=== PATIENT | female | born 1995 | race Caucasian/White ===

== ENCOUNTER → 2019-06-12 14:57 | Outpatient (CLI) | payer OTHER, SELFPAY ==
--- NOTE | 2019-06-12 14:59 | DI.RAD.S_ITS ---
PROCEDURE: XR CHEST 2V INDICATIONS: R/O PNA TECHNIQUE: 2 views of the chest were acquired. COMPARISON: None. FINDINGS: Surgical changes and devices: None. Lungs and pleura: Lungs are clear. No pleural effusions or pneumothorax. Mediastinum: Mediastinal contours are normal. Heart size is normal. Bones and chest wall: No suspicious bony abnormalities. Soft tissues appear unremarkable. IMPRESSION: Chest without acute cardiopulmonary abnormalities. No focal consolidations. Dictated by: Markos Robledo M.D. on 06/12/2019 at 16:47 Approved by: Markos Robledo M.D. on 06/12/2019 at 16:48
== END ==
PROVIDERS: Visit Provider Physician Assistant
DX: R05 Cough (principal)
CPT/HCPCS: 71046

== ENCOUNTER 2019-11-15 03:48 | Emergency (ER) | payer SELFPAY ==
[2019-11-15 03:55] VITALS: BP 128/79; PULSE 77; RESP 18; TEMP 36.8; O2SAT 98; BMI 19.1
--- NOTE | 2019-11-15 03:55 | ED_ITS ---
HPI - Nausea/Vomiting/Diarrhea General Chief complaint: Abdominal Pain Stated complaint: vomiting since wednesday/ eat Time Seen by Provider: 11/15/19 03:50 Source: patient Mode of arrival: Ambulatory Limitations: no limitations History of Present Illness HPI Narrative: This is a 24-year-old female comes to the emergency department with complaint of abdominal pain. Patient states that she has had vomiting sinc e Wednesday. No fevers. She has not had any chest pain or shortness of breath. She states a week ago she had cold-like upper respiratory symptoms which resolved surgery on Wednesday she has been having intermittent vomiting. She states that it does sometimes seems worse when she lays down. She states that she has been nauseated. She states she has not been able to keep much food down. She has had very small amounts of diarrhea but has been having stools regularly. No black or blood. No frequency, dysuria or urgency. She has not had any back or flank pain. No vaginal discharge. She did start her menses in the last day. She discomfort that sort of epigastric and left upper quadrant. Patient denies any medical problems other anxiety. She stopped her Lexapro in July because her insurance ran out, she states she was taking for anxiety but it was helping some chronic abdominal/stomach issues. She has had an EGD in the had biopsies but they were all negative. She had similar symptoms to this but not as intense as the last several days. She has not had any surgeries. She denies tobacco, alcohol or illicit. Related Data Home Medications Medication Instructions Recorded Confirmed escitalopram oxalate 20 mg tablet 20 mg PO DAILY 05/29/19 06/12/19 Previous Rx's Medication Instructions Recorded famotidine [Pepcid] 40 mg PO DAILY #30 tab 11/15/19 Allergies Allergy/AdvReac Type Severity Reaction Status Date / Time amoxicillin AdvReac hives Verified 06/12/19 15:52 Review of Systems Review of Systems ROS Unobtainable: All systems reviewed & are unremarkable except as noted in HPI and below Patient History Medical History (Updated 11/15/19 @ 04:08 by Marielos Patel DO) Anxiety (Acute) Social History Smoking Status: Never smoker Smoking Status: Never smoker Substance Use Type: does not use Exam Narrative Exam Narrative: GENERAL: Alert and oriented x three, well-nourished female in mild distress. Patient is mildly shaky and appears anxious. HEENT: Head normocephalic, atraumatic, EOMI, pupils reactive, face symmetric, moist mucous membranes NECK: Supple, full range of motion CARDIOVASCULAR: Regular rate and rhythm without murmurs, rubs or gallops. RESPIRATORY: Breath sounds equal bilaterally, no wheezes rales or rhonchi. ABDOMEN: Soft, mild left upper quadrant epigastric tenderness. Normoactive bowel sounds all 4 quadrants. No guarding or rebound, rigidity, no mass : No CVA tenderness EXTREMITIES: Normal range of motion, no clubbing or edema. Neurovascularly intact NEUROLOGICAL: Cranial nerves II through XII grossly intact. Moving all extremities SKIN: Warm, dry, no petechiae, no rashes or lesions. Initial Vital Signs Initial Vital Signs: Vital Signs Temperature 98.3 F 11/15/19 03:55 Pulse Rate 77 11/15/19 03:55 Respiratory Rate 18 11/15/19 03:55 Blood Pressure 128/79 11/15/19 03:55 Pulse Oximetry 98 11/15/19 03:55 Course Orders Ordered: ED Orders 11/15/19 04:03 XR abdomen min 2V Stat 11/15/19 04:08 Complete Blood Count AUTO DIFF Stat Comprehensive Metabolic Panel Stat Lipase Stat Discontinued Medications Sodium Chloride (Normal Saline 0.9%) 1,000 mls @ 1,000 mls/hr IV BOLUS ONE Stop: 11/15/19 05:01 Last Infusion: 11/15/19 05:25 Dose: 0 mls/hr Documented by: Admin: 11/15/19 04:15 Dose: 1,000 mls/hr Documented by: TRELL Ondansetron HCl (Zofran) 4 mg IV NOW ONE Stop: 11/15/19 04:03 Last Admin: 11/15/19 04:15 Dose: 4 mg Documented by: TRELL Ondansetron HCl (Zofran Odt Prepack) 1 bottle MISC SEEINSTR ONE Stop: 11/15/19 05:09 Last Admin: 11/15/19 05:25 Dose: 1 bottle Documented by: TRELL Pantoprazole Sodium (Protonix) 40 mg IV NOW ONE Stop: 11/15/19 04:03 Last Admin: 11/15/19 04:15 Dose: 40 mg Documented by: TRELL Vital Signs Vital signs: Vital Signs - 8 hr 11/15/19 03:55 11/15/19 05:06 Temperature 98.3 F Pulse Rate 77 87 Respiratory Rate 18 16 Blood Pressure 128/79 Blood Pressure [Left Arm] 111/68 Pulse Oximetry 98 99 MDM - Nausea/Vomiting/Diarrhea Lab Data Attestation: I reviewed the patient's lab results. Result diagrams: 11/15/19 04:08 11/15/19 04:08 Labs: Lab Results 11/15/19 11/15/19 Range/Units 04:08 04:08 WBC 9.2 (4.5-11.0) X10^3/uL RBC 4.32 (4.0-5.2) X10^6/uL Hgb 13.4 (12.0-16.0) g/dL Hct 39.0 (36-46) % MCV 90.3 (80-100) fL MCH 31.0 (26-34) PG MCHC 34.3 (30-36) % RDW 14.1 (11.6-14.8) % Plt Count 246 (150-400) X10^3/uL Neut % (Auto) 82.1 H (50-75) % Lymph % (Auto) 10.6 L (25-40) % [place] % (Auto) 6.7 (3-14) % Eos % (Auto) 0.3 L (2-4) % Baso % (Auto) 0.3 (0-2) % Neut # (Auto) 7500 H (8015-6060) /uL Lymph # (Auto) 1000 L (2093-4957) /uL [place] # (Auto) 600 (0-900) /uL Eos # (Auto) 0 (0-450) /uL Baso # (Auto) 0 (0-100) /uL Sodium 139 (137-145) mmol/L Potassium 3.3 L (3.4-5.1) mmol/L Chloride 108 H (98-107) mmol/L Carbon Dioxide 23 (22-32) mmol/L BUN 9 (7-17) mg/dL Creatinine 0.59 (0.52-1.04) mg/dL Estimated GFR > 60.0 (>60) mL/min BUN/Creatinine Ratio 15.3 (6-22) Glucose 114 H (70-100) mg/dL Calcium 9.1 (8.4-10.2) mg/dL Total Bilirubin 0.5 (0.2-1.3) mg/dL AST 23 (14-36) IU/L ALT 15 (<35) IU/L Alkaline Phosphatase 65 (38-126) U/L Total Protein 7.7 (6.3-8.2) g/dL Albumin 4.5 (3.5-5.0) g/dL Globulin 3.2 (1.7-4.1) g/dL Albumin/Globulin Ratio 1.4 (1.0-2.8) Lipase 115 (23-300) U/L Point of Care Testing Test Results Negative Urine Dip Bedside Urine Glucose Negative Bedside Urine Bilirubin - Negative Bedside Urine Ketone - Negative Urine Specific [place] 1.015 Bedside Urine Occult Blood +++ Bedside Urine pH 6.5 Bedside Urine Protein +/- 15 Bedside Urine Urobilinogen +/- 1mg Bedside Urine Nitrite - Negative Bedside Urine Leukocytes - Negative Esterase Imaging Data Abdominal x-ray: Attestation: I personally reviewed and interpreted this imaging study as follows: My Impression: nap, air throughout, no air fluid levels, no signs of obstruction. [facility] Narrative Medical decision making narrative: Of epigastric and left upper quadrant abdominal pain since Wednesday with intermittent vomiting. Patient has normal white count with left shift of 82%, lymphocytes are low. Patient's potassium is low at 3.3 with a chloride of 108 otherwise normal electrolytes and renal function with a glucose of 114 and normal LFTs and lipase. Abdominal x-ray shows no obstructive process with air throughout. Urine shows blood but this is consistent with patient recently starting her menses. is negative call patient is negative for ketones. Patient was given fluids, Zofran and Protonix and on recheck she is feeling better. She states pain has improved, she does not feel nauseated she states she even feels a little hungry. Vital signs continue to be stable. We discussed differential. Plan do short Zofran prepack and also discussed starting a PPI for symptomatology. Patient has had an EGD that was negative in the past although we discussed things like ulcer and gastritis are within the differential. Suspicion for colitis or other intra- abdominal infectious processes is lower. Endometriosis is on the differential. Patient was encouraged to establish with primary care she has some resources with her and we also discussed the residency clinic in [place] maybe a cheaper alternative if she does not currently have insurance. She did find Lexapro quite helpful when she was on it so she was encouraged to reestablish show that she can restart her medication and take it regularly. Discharge Plan Departure Patient Disposition: Home Clinical Impression: Vomiting Qualifiers: Vomiting type: unspecified Nausea presence: with nausea Abdominal pain Qualifiers: Abdominal location: left upper quadrant Qualified Code(s): R10.12 - Left upper quadrant pain Instructions: DI for Abdominal Pain-Adult Activity Restrictions/Additional Instructions: Follow up with primary care options to reestablish and so you can restart her Lexapro if you found this helpful in the past. You may take Zofran 1 tablet every 6 hours as needed for nausea. Take Pepcid 1 tablet daily for next 2 weeks to see if this is helpful for your symptoms. A prescription was sent to [facility] in [place] but you can also buy this medication over the counter if it is cheaper. Return to the ER for fevers greater 100.4 F, new shortness of breath, chest pain or pressure, passing out, persistent vomiting, black or bloody stools, rapidly worsening abdominal or back or flank pain or other new or concerning symptoms. Prescriptions: New famotidine [Pepcid] 40 mg tablet 40 mg PO DAILY Qty: 30 RF: 0 No Action escitalopram oxalate [Lexapro] 20 mg tablet 20 mg PO DAILY RF: 0
--- NOTE | 2019-11-15 04:03 | DI.RAD.S_ITS ---
PROCEDURE: XR ABDOMEN MIN 2V INDICATIONS: abdominal pain, vomiting, small amount of diarrhea TECHNIQUE: 2 views of the abdomen were acquired. COMPARISON: None. FINDINGS: Surgical changes and devices: None. Bowel: No pneumoperitoneum. The bowel gas pattern is normal. Soft tissues: No masses; visualized solid organ contours appear normal in size. No suspicious abdominal calcifications. Bones: No suspicious bony abnormalities. IMPRESSION: Nonspecific bowel gas pattern, no sign of intestinal obstruction or perforation. Dictated by: Alfonso Younger M.D. on 11/15/2019 at 10:06 Approved by: Alfonso Younger M.D. on 11/15/2019 at 10:06
[2019-11-15] MEDS: ONDANSETRON 4 MG/2 ML INJ IV (04:15)
[2019-11-15] MEDS: PANTOPRAZOLE 40 MG VIAL IV (04:15)
[2019-11-15] MEDS: SODIUM CHLORIDE 0.9% 1,000 ML 1000 ML IV (04:15)
[2019-11-15 04:45] LABS: Add Manual Diff / Slide Review NO; Basophils Absolute Auto 0 /uL (0-100); Basophils Percent Auto 0.3 % (0-2); Eosinophils Absolute Auto 0 /uL (0-450); Eosinophils Percent Auto 0.3 % (2-4); Hemoglobin 13.4 g/dL (12.0-16.0); Lymphocytes Absolute Auto 1000 /uL (1100-4500); Lymphocytes Percent Auto 10.6 % (25-40); Mean Corpuscular HGB Conc 34.3 % (30-36); Mean Corpuscular Volume 90.3 fL (80-100); Monocytes Absolute Auto 600 /uL (0-900); Monocytes Percent Auto 6.7 % (3-14); Neutrophils Absolute Auto 7500 /uL (1500-7000); Neutrophils Percent Auto 82.1 % (50-75); Platelet Count 246 X10^3/uL (150-400); Red Blood Cell Count 4.32 X10^6/uL (4.0-5.2); Red Cell Distribution Width 14.1 % (11.6-14.8); White Blood Cell Count 9.2 X10^3/uL (4.5-11.0)
[2019-11-15 04:51] LABS: Alanine Aminotransferase 15 IU/L (<35); Albumin 4.5 g/dL (3.5-5.0); Albumin Globulin Ratio 1.4 (1.0-2.8); Alkaline Phosphatase 65 U/L (38-126); Aspartate Aminotransferase 23 IU/L (14-36); BUN Creatinine Ratio 15.3 (6-22); Bilirubin Total 0.5 mg/dL (0.2-1.3); Blood Urea Nitrogen 9 mg/dL (7-17); Calcium 9.1 mg/dL (8.4-10.2); Carbon Dioxide 23 mmol/L (22-32); Chloride 108 mmol/L (98-107); Estimated Glomerular Filt Rate > 60.0 mL/min (>60); Globulin 3.2 g/dL (1.7-4.1); Glucose 114 mg/dL (70-100); HEMOLYSIS < 15 (0-50); Lipase 115 U/L (23-300); Potassium 3.3 mmol/L (3.4-5.1); Sodium 139 mmol/L (137-145); Total Protein 7.7 g/dL (6.3-8.2)
[2019-11-15 05:06] VITALS: BP 111/68; PULSE 87; RESP 16; O2SAT 99
[2019-11-15] MEDS: ONDANSETRON 4 MG ODT PREPACK 1 BOTTLE MISC (05:25)
[2019-11-15 05:30] VITALS: BP 111/68; PULSE 95; RESP 16; O2SAT 100
== END 2019-11-15 05:30 | disposition home or self-care (01) ==
PROVIDERS: Emergency Provider Emergency Medicine
DX: R10.12 Left upper quadrant pain (principal); R11.2 Nausea with vomiting, unspecified; F41.9 Anxiety disorder, unspecified
CPT/HCPCS: 36415; 74019; 80053; 81003; 81025; 83690; 85025; 96361; 96374; 96375; 99284; C9113; J2405

== ENCOUNTER 2021-05-02 11:14 | Emergency (ER) | payer OTHER, SELFPAY ==
[2021-05-02 11:21] VITALS: BP 110/78; PULSE 92; RESP 14; TEMP 36.3; O2SAT 99
[2021-05-02] MEDS: ONDANSETRON 4 MG ODT PO (11:36)
[2021-05-02 11:56] LABS: Bacteria Urine None Seen; RBC Urine None Seen (0-5/HPF); WBC Urine None Seen (0-5/HPF)
--- NOTE | 2021-05-02 12:04 | ED_ITS ---
HPI - Nausea/Vomiting/Diarrhea General Chief complaint: Nausea/Vomiting/Diarrhea Stated complaint: 8 weeks /dizzy/vomiting Time Seen by Provider: 05/02/21 11:31 Source: patient Mode of arrival: Ambulatory Limitations: no limitations History of Present Illness HPI Narrative: Patient is an otherwise healthy 25-year-old female. at approximately 8 weeks EGA who has yet to have her 1st OB appointment to is here for evaluation of nausea and vomiting. She has had nausea vomiting for the past several weeks. Has been prescribed Zofran by her primary doctor however ran out of this medication a couple days ago. This morning started having continuous nausea and vomiting. Unable to tolerate any oral intake. No urinary symptoms. No vaginal bleeding. Does have some lower abdominal cramping. No diarrhea. No recent travel. No recent antibiotics. No fevers. Related Data Home Medications Medication Instructions Recorded Confirmed escitalopram oxalate 20 mg tablet 20 mg PO DAILY 05/29/19 06/12/19 (Lexapro) Previous Rx's Medication Instructions Recorded promethazine 25 mg tablet 25 mg PO TID PRN 10 Days #30 tab 04/08/21 ondansetron 4 mg disintegrating 4 mg PO Q6H PRN #30 tab 05/02/21 tablet Allergies Allergy/AdvReac Type Severity Reaction Status Date / Time amoxicillin AdvReac hives Verified 06/12/19 15:52 Review of Systems Constitutional Constitutional: Denies fever(s) Cardiovascular Cardiovascular: Reports system reviewed and no additional complaints, except as documented Respiratory Respiratory: Reports system reviewed and no additional complaints, except as documented Gastrointestinal Gastrointestinal: Reports as per HPI Genitourinary Genitourinary: Reports as per HPI Integumentary/Breasts Skin/Breast: Reports system reviewed and no additional complaints, except as documented Neurologic Neurologic: Reports system reviewed and no additional complaints, except as documented Hematologic/Lymphatic On Anticoagulants: No Patient History Medical History Anxiety Social History Smoking Status: Never smoker Smoking Status: Never smoker Substance Use Type: does not use Exam Initial Vital Signs Initial Vital Signs: Vital Signs Temperature 97.4 F L 05/02/21 11:21 Pulse Rate 92 H 05/02/21 11:21 Respiratory Rate 14 05/02/21 11:21 Blood Pressure 110/78 05/02/21 11:21 Pulse Oximetry 99 05/02/21 11:21 Const General: cooperative, comfortable and well developed HENME Head: normal to inspection and normocephalic Resp Effort & Inspection: normal respiratory effort Auscultation: clear to auscultation bilaterally Cardio Rate: regular rate Rhythm: regular rhythm GI Inspection: normal to inspection Palpation: soft Skin General: no rashes or lesions noted Neuro General: patient alert, patient awake and moves all extremities Extrem General: normal to inspection and capillary refill normal Psych Appearance: grossly normal and well kempt Course Orders Ordered: ED Orders 05/02/21 11:30 Urine Microscopic Stat Discontinued Medications Sodium Chloride (Normal Saline 0.9%) 1,000 mls @ 1,000 mls/hr IV BOLUS ONE Stop: 05/02/21 13:03 Last Admin: 05/02/21 12:30 Dose: 1,000 mls/hr Documented by: SUSY Ondansetron HCl (Ondansetron 4 Mg Odt) 4 mg PO NOW ONE Stop: 05/02/21 11:31 Last Admin: 05/02/21 11:36 Dose: 4 mg Documented by: REBECCA Vital Signs Vital signs: Vital Signs - 8 hr 05/02/21 11:21 Temperature 97.4 F L Pulse Rate 92 H Respiratory Rate 14 Blood Pressure 110/78 Pulse Oximetry 99 MDM - Nausea/Vomiting/Diarrhea Lab Data Labs: Lab Results 05/02/21 Range/Units 11:30 Urine RBC None seen (0-5/HPF) Urine WBC None seen (0-5/HPF) Ur Squamous Epith Cells 5-10 /hpf H (0-5/HPF) Ur Transition Epith Cell 1-5/hpf (0-5/HPF) Urine Bacteria None seen (None) Urine Mucus 3+ H (Negative) Ur Culture Indicated? Cult not indicated Urine Dip Bedside Urine Glucose Negative Bedside Urine Bilirubin - Negative Bedside Urine Ketone +++ 80 Urine Specific [place] 1.015 Bedside Urine Occult Blood - Negative Bedside Urine pH 8.0 Bedside Urine Protein + 30 Bedside Urine Urobilinogen - Negative Bedside Urine Nitrite - Negative Bedside Urine Leukocytes - Negative Esterase MDM Narrative Medical decision making narrative: Urinalysis shows ketones but no signs of an infection. She is not having any vaginal bleeding. After fluids she was able to tolerate oral intake. Will hold on any further workup for now to include radiologic studies. Will give her a prescription for Zofran. She already has OB scheduled. She is given return precautions and follow-up instructions. She expressed understanding and agreement. Discharge Plan Departure Patient Disposition: Home Clinical Impression: Nausea and vomiting during Instructions: Nausea of (Alternative Therapy) Activity Restrictions/Additional Instructions: I recommend that you increase your fluid intake by drinking small amounts over longer periods of time. Keep all of your scheduled OB appointment. Return to the emergency department for any new or worsening symptoms Prescriptions: New ondansetron 4 mg tablet,disintegrating 4 mg PO Q6H PRN (Reason: nausea and vomiting) Qty: 30 RF: 0 No Action escitalopram oxalate [Lexapro] 20 mg tablet 20 mg PO DAILY RF: 0 promethazine 25 mg tablet 25 mg PO TID PRN (Reason: nausea and vomiting) 10 Days Qty: 30 RF: 1 Referrals: Mary Arshad DO [Primary Care Provider] -
[2021-05-02 12:10] LABS: Culture Indicated Urine Cult Not Indicated; Mucus Urine 3+ (Negative); Squamous Epithelial Cell Urine 5-10 /HPF (0-5/HPF); Transitional Epi Cells Urine 1-5/HPF (0-5/HPF)
[2021-05-02] MEDS: SODIUM CHLORIDE 0.9% 1,000 ML 1000 ML IV (12:30)
[2021-05-02 14:25] VITALS: BP 101/53; PULSE 80; RESP 16; O2SAT 99
== END 2021-05-02 14:29 | disposition home or self-care (01) ==
PROVIDERS: Emergency Provider Emergency Medicine; PCP Family Medicine
DX: O21.9 Vomiting of pregnancy, unspecified (principal); Z3A.08 8 weeks gestation of pregnancy
CPT/HCPCS: 36415; 81003; 81015; 96360; 96361; 99284

== ENCOUNTER → 2021-05-05 14:31 | Outpatient (CLI) | payer OTHER, SELFPAY ==
--- NOTE | 2021-05-05 14:32 | DI.US.S_ITS ---
PROCEDURE: US OB <= 14 WEEKS FETUS INDICATIONS: Initial US for Dating and Viability please OUTSIDE/PRIOR DATING DATA: First dating scan (date and location): 05/05/2021. Estimated date of delivery (SRAVAN) from first dating scan: 12/08/2021. TECHNIQUE: Real-time scanning was performed of the fetus and maternal pelvic organs, with image documentation. Endovaginal scanning was also performed to better visualize the fetus and maternal ovaries. COMPARISON: None. FINDINGS: Embryo: [place]-rump length measures 2.3 cm corresponding to 9 weeks 0 days. Perigestational sac bleed site measuring 7.7 x 1.6 x 0.6 cm. Heart rate: Within normal limits, with left corpus luteal cyst Measurement variability in dating: +/- 4 weeks by LMP, +/- 7 days by mean sac diameter (use before 6 weeks gestation if crown-rump length not able to be measured), +/- 5 days by crown-rump length (up to 8 weeks 6 days gestation), +/- 7 days by crown-rump length (up to 13 weeks 6 days gestation). Maternal organs: Ovaries within normal limits, with left corpus luteal cyst . IMPRESSION: 9 week 0 day single living IUP and moderate perigestational sac bleed site. Dictated by: Len Avery RRA Interpreted: Adalberto Maya MD on 05/05/2021 at 16:36 Transcribed by: AMPARO on 05/05/2021 at 16:38 Approved by: Adalberto Maya M.D. on 05/05/2021 at 16:49
== END ==
PROVIDERS: PCP Family Medicine; Referring Provider Family Medicine; Visit Provider Family Medicine
DX: Z34.01 Encounter for supervision of normal first pregnancy, first trimester (principal); Z3A.09 9 weeks gestation of pregnancy
CPT/HCPCS: 76801; 76817

== ENCOUNTER → 2021-05-19 15:26 | Outpatient (CLI) | payer OTHER, SELFPAY ==
[2021-05-19 16:26] LABS: Add Manual Diff / Slide Review NO; Basophils Absolute Auto 0 /uL (0-100); Basophils Percent Auto 0.6 % (0-2); Eosinophils Absolute Auto 100 /uL (0-450); Eosinophils Percent Auto 0.7 % (2-4); Hematocrit 37.4 % (36-46); Hemoglobin 12.9 g/dL (12.0-16.0); Lymphocytes Absolute Auto 2100 /uL (1100-4500); Lymphocytes Percent Auto 25.9 % (25-40); Mean Corpuscular HGB Conc 34.4 % (30-36); Mean Corpuscular Hemoglobin 31.6 PG (26-34); Monocytes Absolute Auto 600 /uL (0-900); Monocytes Percent Auto 7.9 % (3-14); Neutrophils Absolute Auto 5300 /uL (1500-7000); Neutrophils Percent Auto 64.9 % (50-75); Platelet Count 219 X10^3/uL (150-400); Red Blood Cell Count 4.07 X10^6/uL (4.0-5.2); Red Cell Distribution Width 13.6 % (11.6-14.8); White Blood Cell Count 8.2 X10^3/uL (4.5-11.0)
[2021-05-19 16:27] LABS: Appearance Urine UA CLEAR; Bilirubin Urine UA NEGATIVE (NEGATIVE); Color Urine UA YELLOW; Glucose Urine UA NEGATIVE (Negative); Ketones Urine UA NEGATIVE (NEGATIVE); Leukocyte Esterase Urine UA NEGATIVE (NEGATIVE); Nitrite Urine UA NEGATIVE (Negative); Occult Blood Urine UA NEGATIVE (Negative); Protein Urine UA NEGATIVE (Negative); Urobilinogen Urine UA 0.2 E.U./dL (0.2)
[2021-05-19 18:21] LABS: Hepatitis B Surface Antigen NEGATIVE s/c (NEGATIVE)
[2021-05-19 18:38] LABS: HIV 1 & 2 Ab/Ag 4th Gen Combo NEGATIVE (NEGATIVE); Hep C Virus Ab w/Reflex Quant NEGATIVE s/c (NEGATIVE)
[2021-05-20 08:13] LABS: RPR Screen Non Reactive (Non Reactive)
[2021-05-20 14:19] LABS: Varicella IgG Antibody 334 index (Immune >165)
== END ==
LOC: LAB 15:26
PROVIDERS: PCP Family Medicine; Referring Provider Family Medicine; Visit Provider Family Medicine
DX: Z34.01 Encounter for supervision of normal first pregnancy, first trimester (principal)
CPT/HCPCS: 36415; 80055; 81003; 86787; 86803; 86850; 86900; 86901; 87086; 87389

== ENCOUNTER → 2021-07-01 13:57 | Outpatient (CLI) | payer OTHER, SELFPAY ==
[2021-07-01 14:54] LABS: COVID19 -Nasal RAPID Negative (Negative)
== END ==
PROVIDERS: PCP Family Medicine; Referring Provider Physician Assistant; Visit Provider Physician Assistant
DX: Z20.822 Contact with and (suspected) exposure to COVID-19 (principal)
CPT/HCPCS: 87635

== ENCOUNTER → 2021-07-14 14:47 | Outpatient (CLI) | payer OTHER, SELFPAY ==
[2021-07-30 23:54] LABS: AFP, Serum 86.1 ng/mL (.); Calc Gestational Age EDD (.); Estriol, Free 1.86 ng/mL (.); Inhibin A, Dimeric 61.98 pg/mL (.); Inhibin A, MoM 0.35 (.); Maternal Ethnicity Caucasian (.); Maternal Weight 130 lbs (.); Number of Fetuses No (.); OSBR Risk 1 IN 1671 (.); Results Report (.); Test Results *Screen Negative* (.); hCG, MoM 1.12 (.); hCG, Serum 34674 mIU/mL (.)
== END ==
PROVIDERS: PCP Family Medicine; Referring Provider Family Medicine; Visit Provider Family Medicine
DX: Z34.92 Encounter for supervision of normal pregnancy, unspecified, second trimester (principal); Z3A.14 14 weeks gestation of pregnancy
CPT/HCPCS: 36415; 82105; 82677; 84702; 86336

== ENCOUNTER → 2021-07-28 14:39 | Outpatient (CLI) | payer OTHER, SELFPAY ==
--- NOTE | 2021-07-28 14:40 | DI.US.S_ITS ---
PROCEDURE: US OB >= 14 WEEKS FETUS INDICATIONS: ANATOMY OUTSIDE/PRIOR DATING DATA: Last menstrual period (LMP): Unknown. First dating scan (date and location): [facility]; May 05, 2021. Estimated date of delivery (SRAVAN) from first dating scan: December 08, 2021. The calculations are made using the ultrasound SRAVAN of December 08, 2021. TECHNIQUE: Real-time scanning was performed of the fetus, with image documentation and biometric measurements. COMPARISON: None. FINDINGS: General: A single living intrauterine gestation is present. Presentation: Variable. Placenta: Placental position is posterior, without previa. Low lying, measuring 1.9 cm from the cervical os Amniotic fluid index: 13.3 cm, normal range is 5-24 cm. Single deepest vertical pocket is 3.7 cm. heart rate: 162 beats per minute. Maternal cervical canal: 3.3 cm long. Normal lower limit is 2.5 cm. biometrics: Biparietal diameter: 5.2 cm Head circumference: 18.9 cm Abdominal circumference: 16.2 cm Femur length: 3.5 cm Composite gestational age from present scan: 21 weeks, 3 days Estimated weight and percentile: 411 g +/-61 g; 59th percentile Anatomic survey: Neuro: Ventricles are non-dilated at less than 10 mm. Cisterna magna is normal at 3-11 mm. Cerebellum is normal in size and morphology. Nuchal skin fold: Normal at less than 6 mm between 14-21 weeks gestational age. Face: Nose and lips, facial profile are normal. Spine: No evidence for spina bifida. Heart: 4-chambered heart is present, with normal ventricular outflow tracts. Diaphragm: Diaphragm is intact. Stomach: Left-sided stomach is present. Kidneys: No hydronephrosis. Normal is less than 5 mm in 2nd trimester, less than 7 mm in 3rd trimester. Cord: 3-vessel cord has orthotopic insertion. Bladder: Normal in size. Extremities: All 4 extremities identified. IMPRESSION: 1. Live single intrauterine gestation. 2. Low lying placenta. We strive to produce accurate, complete, and clear reports of imaging services. To assist us in improving patient care, this report was composed using standard report templates and voice recognition software. Therefore, it may contain abnormal punctuation, insertions and/or omissions. Occasional wrong-word or sound-alike substitutions may occur. Though we review the report and make efforts to correct it, we do recommend that the report be read carefully in proper context to recognize any text inaccuracies. Dictated by: Brodie Delgadillo M.D. on 07/28/2021 at 16:13 Approved by: Brodie Delgadillo M.D. on 07/28/2021 at 16:16
== END ==
PROVIDERS: PCP Family Medicine; Referring Provider Family Medicine; Visit Provider Family Medicine
DX: Z36.89 Encounter for other specified antenatal screening (principal); O44.42 Low lying placenta NOS or without hemorrhage, second trimester; Z3A.21 21 weeks gestation of pregnancy
CPT/HCPCS: 76811; 76817

== ENCOUNTER → 2021-08-26 15:44 | Outpatient (CLI) | payer OTHER, SELFPAY ==
[2021-08-28 12:21] LABS: QuantiFERON Mitogen Value >10.00 IU/mL (.); QuantiFERON TB Gold Plus Negative (Negative)
== END ==
PROVIDERS: PCP Family Medicine; Referring Provider Family Medicine; Visit Provider Family Medicine
DX: Z20.1 Contact with and (suspected) exposure to tuberculosis (principal)
CPT/HCPCS: 36415; 86480

== ENCOUNTER 2021-09-16 15:29 | Emergency (ER) | payer OTHER, SELFPAY ==
[2021-09-16 15:37] VITALS: BP 120/78; PULSE 84; RESP 14; TEMP 36.6; O2SAT 99; BMI 23.3
--- NOTE | 2021-09-16 16:06 | ED_ITS ---
HPI - SOB/Dyspnea General Chief Complaint: Shortness of Breath/Dyspnea Stated Complaint: SOB DIZZY 28 WKS Time Seen by Provider: 09/16/21 15:58 Source: patient Mode of arrival: Wheelchair Limitations: no limitations History of Present Illness HPI Narrative: Patient is a 26-year-old female who is currently 28 weeks presenting with increasing shortness of breath. She recently traveled on an airplane and got back 2 days ago. Since then she has had more shortness of breath with exertion. She was seen by her OB today noted to have conversational dyspnea and tachycardia. Concern for possible pulmonary embolism. She actually had COVID in June as well. She has no lower extremity swelling. No fever chills or cough. She was sent to the ED evaluation for PE. She is not short of breath at rest or tachycardic at this time. Related Data Home Medications Medication Instructions Recorded Confirmed escitalopram oxalate 20 mg tablet 20 mg PO DAILY 05/29/19 07/14/21 (Lexapro) Previous Rx's Medication Instructions Recorded promethazine 25 mg tablet 25 mg PO TID PRN 10 Days #30 tab 04/08/21 ondansetron 4 mg disintegrating 4 mg PO Q6H PRN #30 tab 05/02/21 tablet albuterol sulfate 90 mcg/actuation 2 puff INHALATION Q6H PRN #8.5 g 06/06/21 aerosol inhaler Allergies Allergy/AdvReac Type Severity Reaction Status Date / Time amoxicillin AdvReac Intermediate hives Verified 09/16/21 15:37 Review of Systems Review of Systems Narrative: GENERAL: Denies chills, fatigue, malaise, fever, sweats, travel HEENT: Denies sinus pain, ear pain, sore throat, difficulty swallowing, neck pain RESPIRATORY: see again CARDIOVASCULAR: Denies chest pain, palpitations, orthopnea, edema GASTROINTESTINAL: Denies nausea, vomiting, abdominal pain, diarrhea, constipation, melena. : Denies dysuria, frequency, incontinence, hematuria, urinary retention, flank pain. MUSCULOSKELETAL: Denies weakness, joint pain, or bony pain SKIN: No rash, no erythema, no pruritus NEUROLOGIC: Denies weakness, dizziness, headache, numbness, change in speech, confusion PSYCHIATRIC: No concerning psychosocial issues. 12 point review of systems is negative except for those stated above and HPI Patient History Medical History Anxiety Asthma Chronic upset stomach Eczema Migraine MRSA (methicillin resistant staph aureus) culture positive (~2006) Surgical History History of esophagogastroduodenoscopy (EGD) (~2016) [place] teeth extracted (~2015) Family History Father Diabetes mellitus Mother Tumor cells, benign History of partial thyroidectomy Grandfather Myocardial infarction Grandmother Cancer Cancer of kidney Metastatic cancer Metastatic bone cancer Grandfather History of ETOH abuse Diabetes mellitus Leukemia Grandmother Depression Diabetes mellitus Alzheimer's dementia Brother Asthma Family/Other No problems noted. 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.) current occupational exposures/hazards: Yes special lorena needs: No Smoking Status: Never smoker second hand exposure: No alcohol intake: former (pre- : on a rare occasion) substance use type: does not use Smoking Status: Never smoker alcohol intake frequency: holidays/special occasions only Substance Use Type: does not use Exam Initial Vital Signs Initial Vital Signs: Vital Signs Temperature 97.8 F 09/16/21 15:37 Pulse Rate 84 09/16/21 15:37 Respiratory Rate 14 09/16/21 15:37 Blood Pressure 120/78 09/16/21 15:37 Pulse Oximetry 99 09/16/21 15:37 GENERAL: Alert 26-year-old female HEENT: Head atraumatic,EOMI, pupils reactive, face symmetric, moist mucous membranes CARDIOVASCULAR: Regular rate and rhythm without murmurs, rubs or gallops. RESPIRATORY: Breath sounds equal bilaterally, no wheezes rales or rhonchi. ABDOMEN: Soft, gravid nontender Normoactive bowel sounds all 4 quadrants. No guarding or rebound. EXTREMITIES: Normal range of motion, no clubbing or edema. Neurovascularly intact NEUROLOGICAL: Alert and oriented x4.Normal gait and speech. SKIN: Warm, dry, no laceration, no petechiae, no rashes or lesions. Course Orders Ordered: ED Orders 09/16/21 16:25 CBC Auto Diff [Complete Blood Count AUTO DIFF] Stat CMP [Comprehensive Metabolic Panel] Stat 09/16/21 16:33 EKG-12 Lead Stat 09/16/21 17:23 CT angio chest PE protocol Stat Discontinued Medications Sodium Chloride (Normal Saline 0.9%) 1,000 mls @ 1,000 mls/hr IV BOLUS ONE Stop: 09/16/21 17:11 Last Infusion: 09/16/21 17:43 Dose: 0 mls/hr Documented by: Admin: 09/16/21 16:20 Dose: 1,000 mls/hr Documented by: EMMANUELLE Vital Signs Vital signs: Vital Signs - 8 hr 09/16/21 15:37 09/16/21 18:16 09/16/21 18:17 Temperature 97.8 F Pulse Rate 84 91 H 80 Respiratory Rate 14 25 H 21 Blood Pressure 120/78 123/64 Pulse Oximetry 99 99 100 09/16/21 18:30 Temperature Pulse Rate 79 Respiratory Rate 21 Blood Pressure Pulse Oximetry 98 MDM - SOB/Dyspnea Lab Data Result diagrams: 09/16/21 16:25 09/16/21 16:25 Labs: Lab Results 09/16/21 09/16/21 Range/Units 16:25 16:25 WBC 8.7 (4.5-11.0) X10^3/uL RBC 3.26 L (4.0-5.2) X10^6/uL Hgb 10.5 L (12.0-16.0) g/dL Hct 30.3 L (36-46) % MCV 92.9 (80-100) fL MCH 32.2 (26-34) PG MCHC 34.7 (30-36) % RDW 13.3 (11.6-14.8) % Plt Count 231 (150-400) X10^3/uL Neut % (Auto) 67.8 (50-75) % Lymph % (Auto) 22.0 L (25-40) % [place] % (Auto) 8.9 (3-14) % Eos % (Auto) 0.9 L (2-4) % Baso % (Auto) 0.4 (0-2) % Neut # (Auto) 5900 (4747-9042) /uL Lymph # (Auto) 1900 (0732-4169) /uL [place] # (Auto) 800 (0-900) /uL Eos # (Auto) 100 (0-450) /uL Baso # (Auto) 0 (0-100) /uL Sodium 135 L (137-145) mmol/L Potassium 3.6 (3.4-5.1) mmol/L Chloride 107 (98-107) mmol/L Carbon Dioxide 25 (22-32) mmol/L BUN 7 (7-17) mg/dL Creatinine 0.46 L (0.52-1.04) mg/dL Estimated GFR > 60.0 (>60) mL/min BUN/Creatinine Ratio 15.2 (6-22) Glucose 85 (70-100) mg/dL Calcium 8.9 (8.4-10.2) mg/dL Total Bilirubin 0.3 (0.2-1.3) mg/dL AST 21 (14-36) IU/L ALT 11 (<35) IU/L Alkaline Phosphatase 66 (38-126) U/L Total Protein 6.6 (6.3-8.2) g/dL Albumin 3.6 (3.5-5.0) g/dL Globulin 3.0 (1.7-4.1) g/dL Albumin/Globulin Ratio 1.2 (1.0-2.8) Urine Dip Bedside Urine Glucose Negative Bedside Urine Bilirubin - Negative Bedside Urine Ketone - Negative Urine Specific [place] 1.010 Bedside Urine Occult Blood - Negative Bedside Urine pH 6.5 Bedside Urine Protein - Negative Bedside Urine Urobilinogen - Negative Bedside Urine Nitrite - Negative Bedside Urine Leukocytes - Negative Esterase Imaging Data CT scan - chest: Radiologist's Impression: PROCEDURE:? CT ANGIO CHEST PE PROTOCOL ? INDICATIONS:? short of breath after plane 28wks preg ? TECHNIQUE:? After the administration of intravenous contrast, 2 mm thick sections acquired from the pulmonary apices to the posterior costophrenic angles.? 3-dimensional maximum intensity projection (MIP) coronal and sagittal reformats were then acquired through the thorax.? For radiation dose reduction, the following was used:? automated exposure control, adjustment of mA and/or kV according to patient size.? ? COMPARISON:? None. ? FINDINGS:? Image quality:? Posterior lung bases not imaged. ? Pulmonary arteries:? Pulmonary arteries are normal in size, and demonstrate no intraluminal filling defects to suggest central pulmonary embolism.? ? Lungs and pleura:? Lungs are clear.? No pleural effusions or pneumothorax.? Central and peripheral airways are patent.? ? Mediastinum:? Heart size is normal, without pericardial effusion.? No mediastinal or hilar adenopathy.? Thoracic aorta is normal in caliber and enhancement.? Esophagus is normal in caliber, without hiatal hernia.? ? Bones and chest wall:? No suspicious bony lesions.? Ribs and thoracic spine appear intact throughout.? Thyroid gland is within normal limits where visualized No axillary or supraclavicular adenopathy.? ? Abdomen:? Visualized upper abdominal solid organs appear normal in the early arterial phase of enhancement.? ? IMPRESSION:? ? 1. No pulmonary embolus and visualized portions of the chest. ? 2. No lung consolidation or pleural effusions in the visualized portions of the chest.? ? ? Dictated by: Kenyetta Hansen MD, PhD on 09/16/2021 at 18:01 ? ? ECG Data Interpretation: Normal sinus rhythm rate 78 VA interval 152 QRS [address] changes MDM Narrative Medical decision making narrative: At this time patient does have risk factors with recent travel increasing shortness of breath sudden onset tachycardia and over the office today. I spoke to Dr. Arshad myself we discussed signs and symptoms. Some tingling in her lips and hands does sound like mild anxiety. However with recent travel it is very difficult to tell with tachycardia shortness of breath. She has no lower extremity swelling. I discussed with patient risk of CT, she discussed with family decision to go ahead with CT. Fortunately CT does not confirm or sure any pulmonary embolism. Blood work is overall reassuring. At this time can go home and follow-up with OB as planned Discharge Plan Departure Patient Disposition: Home Clinical Impression: Shortness of breath due to in third trimester Instructions: DI for Shortness of Breath Activity Restrictions/Additional Instructions: *You have been diagnosed with shortness of breath *What to do: At this time no life threatening cause of shortness of breath. Breathing may be due to anxiety and . *Continue to take medications as directed *Follow up with your primary care provider in 2-3 days or call [phone] *Return to ER if you should have increasing shortness of breath, abdominal pain, palpitations or any new, worsening or concerning symptoms Prescriptions: No Action escitalopram oxalate [Lexapro] 20 mg tablet 20 mg PO DAILY 0RF promethazine 25 mg tablet 25 mg PO TID PRN (Reason: nausea and vomiting) 10 Days Qty: 30 1RF albuterol sulfate 90 mcg/actuation HFA aerosol inhaler 2 puff inhalation Q6H PRN (Reason: shortness of breath or wheezing) Qty: 8.5 2RF ondansetron 4 mg tablet,disintegrating 4 mg PO Q6H PRN (Reason: nausea and vomiting) Qty: 30 0RF Referrals: Mary Arshad DO [Primary Care Provider] -
[2021-09-16] MEDS: SODIUM CHLORIDE 0.9% 1,000 ML 1000 ML IV (16:20)
[2021-09-16 16:47] LABS: Add Manual Diff / Slide Review NO; Basophils Absolute Auto 0 /uL (0-100); Basophils Percent Auto 0.4 % (0-2); Eosinophils Absolute Auto 100 /uL (0-450); Eosinophils Percent Auto 0.9 % (2-4); Hematocrit 30.3 % (36-46); Hemoglobin 10.5 g/dL (12.0-16.0); Lymphocytes Absolute Auto 1900 /uL (1100-4500); Mean Corpuscular HGB Conc 34.7 % (30-36); Mean Corpuscular Hemoglobin 32.2 PG (26-34); Mean Corpuscular Volume 92.9 fL (80-100); Monocytes Absolute Auto 800 /uL (0-900); Monocytes Percent Auto 8.9 % (3-14); Neutrophils Absolute Auto 5900 /uL (1500-7000); Neutrophils Percent Auto 67.8 % (50-75); Platelet Count 231 X10^3/uL (150-400); Red Blood Cell Count 3.26 X10^6/uL (4.0-5.2); Red Cell Distribution Width 13.3 % (11.6-14.8); White Blood Cell Count 8.7 X10^3/uL (4.5-11.0)
[2021-09-16 16:59] LABS: Alanine Aminotransferase 11 IU/L (<35); Albumin 3.6 g/dL (3.5-5.0); Albumin Globulin Ratio 1.2 (1.0-2.8); Alkaline Phosphatase 66 U/L (38-126); Aspartate Aminotransferase 21 IU/L (14-36); BUN Creatinine Ratio 15.2 (6-22); Bilirubin Total 0.3 mg/dL (0.2-1.3); Blood Urea Nitrogen 7 mg/dL (7-17); Calcium 8.9 mg/dL (8.4-10.2); Carbon Dioxide 25 mmol/L (22-32); Chloride 107 mmol/L (98-107); Estimated Glomerular Filt Rate > 60.0 mL/min (>60); Glucose 85 mg/dL (70-100); HEMOLYSIS < 15 (0-50); Potassium 3.6 mmol/L (3.4-5.1); Sodium 135 mmol/L (137-145); Total Protein 6.6 g/dL (6.3-8.2)
--- NOTE | 2021-09-16 17:23 | DI.CT.S_ITS ---
PROCEDURE: CT ANGIO CHEST PE PROTOCOL INDICATIONS: short of breath after plane 28wks preg TECHNIQUE: After the administration of intravenous contrast, 2 mm thick sections acquired from the pulmonary apices to the posterior costophrenic angles. 3-dimensional maximum intensity projection (MIP) coronal and sagittal reformats were then acquired through the thorax. For radiation dose reduction, the following was used: automated exposure control, adjustment of mA and/or kV according to patient size. COMPARISON: None. FINDINGS: Image quality: Posterior lung bases not imaged. Pulmonary arteries: Pulmonary arteries are normal in size, and demonstrate no intraluminal filling defects to suggest central pulmonary embolism. Lungs and pleura: Lungs are clear. No pleural effusions or pneumothorax. Central and peripheral airways are patent. Mediastinum: Heart size is normal, without pericardial effusion. No mediastinal or hilar adenopathy. Thoracic aorta is normal in caliber and enhancement. Esophagus is normal in caliber, without hiatal hernia. Bones and chest wall: No suspicious bony lesions. Ribs and thoracic spine appear intact throughout. Thyroid gland is within normal limits where visualized No axillary or supraclavicular adenopathy. Abdomen: Visualized upper abdominal solid organs appear normal in the early arterial phase of enhancement. IMPRESSION: 1. No pulmonary embolus and visualized portions of the chest. 2. No lung consolidation or pleural effusions in the visualized portions of the chest. Dictated by: Kenyetta Hansen MD, PhD on 09/16/2021 at 18:01 Approved by: Kenyetta Hansen MD, PhD on 09/16/2021 at 18:05
[2021-09-16 18:16] VITALS: PULSE 91; RESP 25; O2SAT 99
[2021-09-16 18:17] VITALS: BP 123/64; PULSE 80; RESP 21; O2SAT 100
[2021-09-16 18:30] VITALS: PULSE 79; RESP 21; O2SAT 98
== END 2021-09-16 19:00 | disposition home or self-care (01) ==
PROVIDERS: Emergency Provider Emergency Medicine; PCP Family Medicine
DX: O26.893 Other specified pregnancy related conditions, third trimester (principal); R06.02 Shortness of breath; O99.413 Diseases of the circulatory system complicating pregnancy, third trimester; R00.0 Tachycardia, unspecified; Z3A.28 28 weeks gestation of pregnancy
CPT/HCPCS: 36415; 71275; 80053; 81003; 85025; 93005; 96360; 99284; Q9967

== ENCOUNTER → 2021-09-20 08:24 | Outpatient (CLI) | payer OTHER, SELFPAY ==
[2021-09-20 10:00] LABS: Hematocrit 30.7 % (36-46); Hemoglobin 10.8 g/dL (12.0-16.0)
[2021-09-20 10:20] LABS: GTT (PREG) 1 Hour PP 50gm Dose 102 mg/dL (76-139)
== END ==
PROVIDERS: PCP Family Medicine; Referring Provider Family Medicine; Visit Provider Family Medicine
DX: Z34.93 Encounter for supervision of normal pregnancy, unspecified, third trimester (principal); Z3A.26 26 weeks gestation of pregnancy
CPT/HCPCS: 36415; 82950; 85014; 85018

== ENCOUNTER → 2021-09-23 10:33 | Outpatient (CLI) | payer OTHER, SELFPAY ==
[2021-09-23 12:55] LABS: Appearance Urine UA SL CLOUDY; Bilirubin Urine UA NEGATIVE (NEGATIVE); Color Urine UA YELLOW; Glucose Urine UA NEGATIVE (Negative); Ketones Urine UA NEGATIVE (NEGATIVE); Leukocyte Esterase Urine UA NEGATIVE (NEGATIVE); Nitrite Urine UA NEGATIVE (Negative); Occult Blood Urine UA 3+ (Negative); Protein Urine UA NEGATIVE (Negative); Urobilinogen Urine UA 0.2 E.U./dL (0.2)
[2021-09-23 13:05] LABS: pH Urine UA 7.5 (4.5-8.0)
[2021-09-23 13:45] LABS: Bacteria Urine Moderate (10-30); Culture Indicated Urine Cult Not Indicated; RBC Urine 10-30/HPF (0-5/HPF); Squamous Epithelial Cell Urine 1-5 /HPF (0-5/HPF); Transitional Epi Cells Urine 1-5/HPF (0-5/HPF); WBC Urine 1-5/HPF (0-5/HPF)
== END ==
PROVIDERS: PCP Family Medicine; Referring Provider Family Medicine; Visit Provider Family Medicine
DX: R30.0 Dysuria (principal); Z34.90 Encounter for supervision of normal pregnancy, unspecified, unspecified trimester
CPT/HCPCS: 81001

== ENCOUNTER 2021-09-24 06:00 | Observation (INO) | payer OTHER, SELFPAY ==
--- NOTE | 2021-09-24 06:24 | DI.US.S_ITS ---
PROCEDURE: US OB LIMITED INDICATIONS: bleeding OUTSIDE/PRIOR DATING DATA: First dating scan (date and location): 05/05/2021. Estimated date of delivery (SRAVAN) from first dating scan: 12/08/2021. The calculations are made using the ultrasound SRAVAN of 12/08/2021. TECHNIQUE: Real-time scanning was performed of the fetus, with image documentation. Biometry measurements performed. COMPARISON: [facility], , OB >= 14 WEEKS FETUS, 07/28/2021, 14:51. FINDINGS: A single living intrauterine gestation is present. Presentation: Vertex. Placenta: Placental position is left fundal, without previa. No abruption. Amniotic fluid index: 18.5 cm, normal range is 5-24 cm. Single deepest vertical pocket is 7 cm. heart rate: 149 bpm. Maternal cervical canal: 3.4 cm long. Normal lower limit is 2.5 cm. Biometric measurements: BPD: 7.9 cm, 31 weeks 4 days HC: 27.7 cm, 30 weeks 2 days AC: 26.6 cm, 30 weeks 5 days FL: 5.9 cm, 30 weeks 5 days Gestational age from initial scan: 29 weeks 2 days. Estimated gestational age based on today's ultrasound: 30 weeks 6 days Estimated weight 1630 g, 87th percentile. IMPRESSION: 1. Dan living intrauterine at 30 weeks 6 days based on today's ultrasound. This is concordant with the prior ultrasound dating. Fetus is in the 87th percentile for weight. Vertex position. 2. Normal placenta and amniotic fluid. Dictated by: Justin Laguna M.D. on 09/24/2021 at 8:30 Approved by: Justin Laguna M.D. on 09/24/2021 at 8:36
--- NOTE | 2021-09-24 07:13 | P.TNLD_ITS ---
Visit Information Visit Information Date of evaluation: 09/24/21 Primary OB Provider: Mary Arshad On-call OB Provider: Mary Arshad Reason for Evaluation: Yes other Comments/Additional reasons for admission: 26 year old at 28 weeks and 5 days with cramping and spotting since yesterday. She woke this morning and pain was much more intense. She has had a UTI in the past and this feels similar but far worse. Baby is moving, denies leaking. Vital Signs Vital Signs: Temperature 36.2? blood pressure 127/69 pulse 85 PFSH Medical History Anxiety Asthma Chronic upset stomach Eczema Migraine MRSA (methicillin resistant staph aureus) culture positive (~2006) Surgical History History of esophagogastroduodenoscopy (EGD) (~2016) [place] teeth extracted (~2015) Family History Father Diabetes mellitus Mother Tumor cells, benign History of partial thyroidectomy Grandfather Myocardial infarction Grandmother Cancer Cancer of kidney Metastatic cancer Metastatic bone cancer Grandfather History of ETOH abuse Diabetes mellitus Leukemia Grandmother Depression Diabetes mellitus Alzheimer's dementia Brother Asthma Family/Other No problems noted. 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[place].) current occupational exposures/hazards: Yes special lorena needs: No Smoking Status: Never smoker second hand exposure: No alcohol intake: former (pre- : on a rare occasion) substance use type: does not use Evaluation Evaluation Baseline heart rate: 135 Variability: Moderate (11-25) monitor accelerations: Present Monitor Decelerations: Absent Contraction Frequency (minutes): 0 Category of Tracing: Reactive Diagnosis, Plan/Disposition Final Diagnosis (1) 28 weeks gestation of : Status: Acute (2) Acute UTI: Status: Acute Plan/Disposition Plan: 26 year at 28 weeks and 5 days with acute UTI. No concern for labor, cervical length 3.5 cm. Urine culture is pending. Will treat with nitrofurantoin and Pyridium. Patient was encouraged to hydrate well. OB Disposition: home
[2021-09-24] MEDS: ACETAMINOPHEN 325 MG TABLET 975 MG PO (07:21)
[2021-09-24] MEDS: NITROFURANTOIN ER 100 MG CAPSULE PO (07:21)
[2021-09-24] MEDS: PHENAZOPYRIDINE 100 MG TABLET 200 MG PO (07:56)
[2021-09-24 07:59] LABS: Appearance Urine UA CLEAR; Bilirubin Urine UA NEGATIVE (NEGATIVE); Color Urine UA YELLOW; Glucose Urine UA NEGATIVE (Negative); Ketones Urine UA NEGATIVE (NEGATIVE); Leukocyte Esterase Urine UA NEGATIVE (NEGATIVE); Nitrite Urine UA NEGATIVE (Negative); Occult Blood Urine UA 2+ (Negative); Protein Urine UA NEGATIVE (Negative); Specific Gravity Urine UA <=1.005 (1.000-1.035); Urobilinogen Urine UA 0.2 E.U./dL (0.2)
[2021-09-24 08:17] LABS: RBC Urine 1-5/HPF (0-5/HPF); WBC Urine 1-5/HPF (0-5/HPF); pH Urine UA 6.5 (4.5-8.0)
[2021-09-24 08:18] LABS: Bacteria Urine Few (2-10); Culture Indicated Urine Cult Not Indicated; Squamous Epithelial Cell Urine None Seen (0-5/HPF)
[2021-09-24] MEDS: OXYCODONE IR 5 MG TABLET PO (08:29)
[2021-09-24] MEDS: TAMSULOSIN 0.4 MG CAPSULE PO (08:48)
== END 2021-09-24 08:53 | disposition home or self-care (01) ==
PROVIDERS: Admitting Provider Family Medicine; PCP Family Medicine; Referring Provider Family Medicine; Visit Provider Family Medicine
DX: O23.43 Unspecified infection of urinary tract in pregnancy, third trimester (principal); N39.0 Urinary tract infection, site not specified; Z3A.28 28 weeks gestation of pregnancy
CPT/HCPCS: 59025; 76815; 81001; G0378; G0379

== ENCOUNTER 2021-10-27 06:50 | Observation (INO) | payer OTHER, SELFPAY ==
--- NOTE | 2021-10-27 06:58 | DI.US.S_ITS ---
PROCEDURE: US RENAL COMPLETE INDICATIONS: LEFT FLANK PAIN TECHNIQUE: Real-time scanning was performed of the kidneys and bladder, with image documentation. COMPARISON: None. FINDINGS: Kidneys: Kidneys are normal in size. Right kidney measures 11.9 cm long; left kidney measures 12.4 cm long. Right renal cortical thickness is 1.4 cm; left renal cortical thickness is 1.8 cm. Renal cortical echotexture is normal. There is moderate to severe bilateral, symmetric hydronephrosis. Ureteropelvic junction on the right measures 1.4 cm in diameter and 1.6 cm on the left. No visible nephrolithiasis. Mid and distal ureters were not visible. Bladder: The urinary bladder is not filled and compressed by the head. Miscellaneous: There is a living fetus in vertex presentation with a heart rate of 139 beats per minute. IMPRESSION: 1. Symmetric, moderate to severe bilateral hydronephrosis. This is likely physiologic due to . 2. Urinary bladder not evaluated, compressed by the head. Dictated by: Ana Perez M.D. on 10/27/2021 at 8:11 Approved by: Ana Perez M.D. on 10/27/2021 at 8:15
[2021-10-27] MEDS: SODIUM CHLORIDE 0.45% 1,000 ML 1000 ML IV (07:45)
[2021-10-27 08:00] LABS: Add Manual Diff / Slide Review NO; Basophils Absolute Auto 100 /uL (0-100); Basophils Percent Auto 0.6 % (0-2); Eosinophils Absolute Auto 0 /uL (0-450); Eosinophils Percent Auto 0.5 % (2-4); Hematocrit 31.7 % (36-46); Hemoglobin 10.8 g/dL (12.0-16.0); Lymphocytes Absolute Auto 1500 /uL (1100-4500); Lymphocytes Percent Auto 15.9 % (25-40); Mean Corpuscular HGB Conc 34.1 % (30-36); Mean Corpuscular Hemoglobin 31.5 PG (26-34); Mean Corpuscular Volume 92.3 fL (80-100); Monocytes Absolute Auto 700 /uL (0-900); Monocytes Percent Auto 7.8 % (3-14); Neutrophils Absolute Auto 6900 /uL (1500-7000); Neutrophils Percent Auto 75.2 % (50-75); Platelet Count 222 X10^3/uL (150-400); Red Blood Cell Count 3.44 X10^6/uL (4.0-5.2); Red Cell Distribution Width 14.8 % (11.6-14.8); White Blood Cell Count 9.2 X10^3/uL (4.5-11.0)
[2021-10-27] MEDS: OXYCODONE IR 5 MG TABLET PO (08:03)
--- NOTE | 2021-10-27 08:04 | PM.OBTRLD ---
Visit Information Visit Information Date of evaluation: 10/27/21 Primary OB Provider: Mary Arshad Reason for Evaluation: Yes non-stress test Comments/Additional reasons for admission: Patient comes in complaining lower pelvic pain, left greater than right, and cramping similar to a month ago when she was diagnosed probable nephrolithiasis. Pain started early this morning and she also noticed blood with urination. She has also noticed small granules in her urine. Denies back or flank pain. Denies contractions, leaking or bleeding and reports good movement. She believes she has been hydrating well. Father has a history of kidney stones. Vital Signs Vital Signs: Temperature 97.9? blood pressure 124/79 heart rate 104 respirations 18 PFSH Medical History Anxiety Asthma Chronic upset stomach Eczema Migraine MRSA (methicillin resistant staph aureus) culture positive (~2006) Surgical History History of esophagogastroduodenoscopy (EGD) (~2016) [place] teeth extracted (~2015) Family History Father Diabetes mellitus Mother Tumor cells, benign History of partial thyroidectomy Grandfather Myocardial infarction Grandmother Cancer Cancer of kidney Metastatic cancer Metastatic bone cancer Grandfather History of ETOH abuse Diabetes mellitus Leukemia Grandmother Depression Diabetes mellitus Alzheimer's dementia Brother Asthma Family/Other No problems noted. 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.) current occupational exposures/hazards: Yes special lorena needs: No Smoking Status: Never smoker second hand exposure: No alcohol intake: former (pre- : on a rare occasion) substance use type: does not use Objective Labs Result Diagrams: 10/27/21 07:35 10/27/21 08:50 Labs: Laboratory Results - last 24 hr 10/27/21 07:35 WBC 9.2 RBC 3.44 L Hgb 10.8 L Hct 31.7 L MCV 92.3 MCH 31.5 MCHC 34.1 RDW 14.8 Plt Count 222 Neut % (Auto) 75.2 H Lymph % (Auto) 15.9 L [place] % (Auto) 7.8 Eos % (Auto) 0.5 L Baso % (Auto) 0.6 Neut # (Auto) 6900 Lymph # (Auto) 1500 [place] # (Auto) 700 Eos # (Auto) 0 Baso # (Auto) 100 Evaluation Evaluation Baseline heart rate: 130 Variability: Moderate (11-25) monitor accelerations: Present Monitor Decelerations: Absent Contraction Frequency (minutes): 8 Uterine Contraction Intensity: Mild Category of Tracing: Reactive Diagnosis, Plan/Disposition Final Diagnosis (1) 33 weeks gestation of : Status: Acute (2) Nephrolithiasis: Status: Acute Plan/Disposition Plan: 26-year-old at 33 weeks and 3 days gestation with complaints of suprapubic pain and hematuria since early this morning. She had a similar episode over a month ago which resolved after about 24 hours and was thought to be due to the passage of a kidney stone. Ultrasound today did not show a stone but did show moderate to severe bilateral hydronephrosis likely due to . No evidence of obstruction. Renal function is normal. UA suggestive of nephrolithiasis with 3+ blood. She received normal saline, tamsulosin oxycodone and reported improvement in her pain. Counseled patient that I do think she has a stone again and expect pain to improve in the coming days with hydration and tamsulosin. She voiced her understanding. We will see her as scheduled in clinic or have her follow-up sooner if needed. OB Disposition: home
[2021-10-27] MEDS: TAMSULOSIN 0.4 MG CAPSULE PO (08:09)
[2021-10-27 08:11] LABS: Appearance Urine UA CLOUDY; Bilirubin Urine UA NEGATIVE (NEGATIVE); Color Urine UA YELLOW; Glucose Urine UA NEGATIVE (Negative); Ketones Urine UA NEGATIVE (NEGATIVE); Leukocyte Esterase Urine UA NEGATIVE (NEGATIVE); Nitrite Urine UA NEGATIVE (Negative); Occult Blood Urine UA 3+ (Negative); Protein Urine UA TRACE (Negative); Specific Gravity Urine UA 1.015 (1.000-1.035); Urobilinogen Urine UA 0.2 E.U./dL (0.2)
[2021-10-27 08:12] LABS: pH Urine UA 6.5 (4.5-8.0)
[2021-10-27 08:18] LABS: Amorphous Sediment Urine 1+; RBC Urine 5-10/HPF (0-5/HPF); Squamous Epithelial Cell Urine 5-10 /HPF (0-5/HPF); WBC Urine None Seen (0-5/HPF)
[2021-10-27 08:19] LABS: Bacteria Urine Few (2-10)
[2021-10-27 09:46] LABS: BUN Creatinine Ratio 14.3 (6-22); Blood Urea Nitrogen 7 mg/dL (7-17); Calcium 8.1 mg/dL (8.4-10.2); Carbon Dioxide 25 mmol/L (22-32); Chloride 106 mmol/L (98-107); Estimated Glomerular Filt Rate > 60.0 mL/min (>60); Glucose 107 mg/dL (70-100); HEMOLYSIS < 15 (0-50); Potassium 3.7 mmol/L (3.4-5.1); Sodium 136 mmol/L (137-145)
== END 2021-10-27 10:05 | disposition home or self-care (01) ==
PROVIDERS: Obstetrics & Gynecology; Admitting Provider Family Medicine; PCP Family Medicine; Referring Provider Family Medicine; Visit Provider Family Medicine
DX: O26.893 Other specified pregnancy related conditions, third trimester (principal); N20.0 Calculus of kidney; Z3A.33 33 weeks gestation of pregnancy
CPT/HCPCS: 36415; 59025; 76770; 80048; 81001; 85025; 87086; 96360; G0378; G0379; J7050

== ENCOUNTER → 2021-11-17 15:06 | Outpatient (CLI) | payer OTHER, SELFPAY ==
[2021-11-18 14:54] LABS: Strep Grp B PCR NEG for Grp B Strep
== END ==
PROVIDERS: PCP Family Medicine; Visit Provider Family Medicine
DX: Z36.85 Encounter for antenatal screening for Streptococcus B (principal); Z3A.36 36 weeks gestation of pregnancy
CPT/HCPCS: 87653

== ENCOUNTER 2021-12-15 14:57 | Outpatient (CLI) | payer OTHER, SELFPAY ==
--- NOTE | 2021-12-15 15:45 | P.TNLD_ITS ---
Visit Information Visit Information Date of evaluation: 12/15/21 Primary OB Provider: Mary Arshad Reason for Evaluation: Yes non-stress test non-stress test reason: decreased movement Comments/Additional reasons for admission: 26-year-old at 40 weeks who came in to her clinic appointment today with decreased movement. She has been having some contractions but denies leaking or bleeding. Movement has been present but decreased. Vital Signs Vital Signs: Temperature 36.2? blood pressure 137/87 heart rate 87 PFSH Medical History Anxiety Asthma Chronic upset stomach Eczema Migraine MRSA (methicillin resistant staph aureus) culture positive (~2006) Surgical History History of esophagogastroduodenoscopy (EGD) (~2016) [place] teeth extracted (~2015) Family History Father Diabetes mellitus Mother Tumor cells, benign History of partial thyroidectomy Grandfather Myocardial infarction Grandmother Cancer Cancer of kidney Metastatic cancer Metastatic bone cancer Grandfather History of ETOH abuse Diabetes mellitus Leukemia Grandmother Depression Diabetes mellitus Alzheimer's dementia Brother Asthma Family/Other No problems noted. 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[place].) current occupational exposures/hazards: Yes special lorena needs: No Smoking Status: Never smoker second hand exposure: No alcohol intake: former (pre- : on a rare occasion) substance use type: does not use Evaluation Evaluation Baseline heart rate: 140 Variability: Moderate (11-25) monitor accelerations: Present Monitor Decelerations: Absent Category of Tracing: Reactive Diagnosis, Plan/Disposition Final Diagnosis (1) Decreased movement: Status: Acute (2) 40 weeks gestation of : Status: Acute Plan/Disposition Plan: 26-year-old at 40 weeks and 3 would days gestation here for decreased movement. NST reactive and patient reassured. Follow-up in 3 days for induction or sooner if needed. OB Disposition: home
== END 2021-12-15 15:30 | disposition home or self-care (01) ==
LOC: LABOR 15:00 → OB 12-16 07:28
PROVIDERS: PCP Family Medicine; Referring Provider Family Medicine; Visit Provider Family Medicine
DX: O36.8130 Decreased fetal movements, third trimester, not applicable or unspecified (principal); O47.1 False labor at or after 37 completed weeks of gestation; O48.0 Post-term pregnancy; Z3A.40 40 weeks gestation of pregnancy
CPT/HCPCS: 59025; G0378; G0379

== ENCOUNTER 2021-12-18 07:03 | Inpatient (IN) | payer OTHER, SELFPAY ==
--- NOTE | 2021-12-18 07:22 | PM.OBHP.IH.1 ---
OB HPI Date/Time Date of admission: 12/18/21 Date Patient Seen: 12/18/21 Time Patient Seen: 07:22 History of Present Condition Chief complaint: SRAVAN Calculator Estimated Delivery Date Method Current WG Current Estimate 12/12/21 LMP (Certain) 40w 6d Other Estimates 12/08/21 Ultrasound #1 41w 3d : 1 Para: 0 Narrative: 26-year-old at 40 weeks and 6 days here for post-dates induction. complicated by COVID infection in the early second trimester treated with monoclonal antibodies. Course was uncomplicated. further complicated by nephrolithiasis managed conservatively. She denies leaking at or bleeding and reports good movement as well as occasional contractions. care: good care, initiated at week # (10), number of visits (14) and pounds weight gain (55) Dating criteria OB: LMP confirmed by 1st trimester US Ultrasounds: normal 1st trimester US and normal mid trimester US Obstetrical complications: none Medical complications OB: none Indications Indication for induction OB: post dates Preadmission Labs Last OB Lab Results: Blood Type A Positive 05/19/21 15:46 05/19/21 Antibody Screen Negative 05/19/21 15:46 05/19/21 Hematocrit 31.7 % (36-46) L 10/27/21 07:35 10/27/21 Hemoglobin 10.8 g/dL (12.0-16.0) L 10/27/21 07:35 10/27/21 Hepatitis B Surface Antigen Negative s/c (NEGATIVE) 05/19/21 15:46 05/19/21 Hepatitis C Antibody Negative s/c (NEGATIVE) 05/19/21 15:46 05/19/21 Rubella Antibody 20.0 IU/mL (>15) 05/19/21 15:46 05/19/21 Varicella-Zoster IgG Antibody 334 index (Immune >165) 05/19/21 15:46 05/19/21 Glucose 1 Hour 102 mg/dL (76-139) 09/20/21 09:35 09/20/21 Group B Streptococcus (PCR) Neg for grp b strep 11/17/21 15:06 11/17/21 -: Chlamydia screen: negative, Gonorrhea screen: negative and Urine: negative -: PAP smear: Normal Genetic Screens: Quad screen: Normal External Labs -: Urine: negative Evaluation Evaluation Baseline heart rate: 140 Variability: Moderate (11-25) monitor accelerations: Present Monitor Decelerations: Absent Category of Tracing: Reactive Dilation (cm): 1.5 Effacement (%): 75 Dilation: 1-2 cm Effacement: 60-70% station: -1 Position of cervix: anterior Consistency: soft Leon score: 9 PFSH Medical History Anxiety Asthma Chronic upset stomach Eczema Migraine MRSA (methicillin resistant staph aureus) culture positive (~2006) Surgical History History of esophagogastroduodenoscopy (EGD) (~2016) [place] teeth extracted (~2015) Family History Father Diabetes mellitus Mother Tumor cells, benign History of partial thyroidectomy Grandfather Myocardial infarction Grandmother Cancer Cancer of kidney Metastatic cancer Metastatic bone cancer Grandfather History of ETOH abuse Diabetes mellitus Leukemia Grandmother Depression Diabetes mellitus Alzheimer's dementia Brother Asthma Family/Other No problems noted. 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.) current occupational exposures/hazards: Yes special lorena needs: No Smoking Status: Never smoker second hand exposure: No alcohol intake: former (pre- : on a rare occasion) substance use type: does not use Meds Home Medications and Allergies Home Medications Medication Instructions Recorded Confirmed Type escitalopram oxalate 20 mg tablet 20 mg PO DAILY 05/29/19 07/14/21 History (Lexapro) ondansetron 4 mg disintegrating 4 mg PO Q6H PRN #30 tab 05/02/21 07/14/21 Rx tablet albuterol sulfate 90 mcg/actuation 2 puff INHALATION Q6H PRN #8.5 g 01/31/22 01/31/22 Rx aerosol inhaler Allergies Allergy/AdvReac Type Severity Reaction Status Date / Time amoxicillin AdvReac Intermediate hives Verified 09/16/21 15:37 Review of Systems Review of Systems ROS: Yes All systems reviewed with the patient and are negative except as otherwise documented OB Exam Narrative Exam Narrative: Blood pressure 123/88 heart rate 112 HENMT Head: normal to inspection Mouth: oral mucosae normal Eyes General: appearance normal, both eyes and all related structures Resp Effort & Inspection: normal respiratory effort Auscultation: clear to auscultation bilaterally Cardio Rate: regular rate Rhythm: regular rhythm Heart Sounds: S1 normal and S2 normal Extremities Lower extremity: Yes normal to inspection; No edema External Female Exam: Yes normal external appearance Presentation: vertex Estimated Weight (lbs): 8 Assessment and Plan Assessment and Plan Assessment and Plan narrative: 26-year-old here for post-dates induction. Leon score of 9. GBS negative. Plan Admit labs and COVID swab Pitocin per protocol Epidural upon request Anticipate
[2021-12-18] MEDS: LACTATED RINGERS 1,000 ML 100 ML IV ×2 (08:00→14:13)
[2021-12-18] MEDS: OXYTOCIN PREMIX 30 UNIT/500 ML PLAST..BAG IV (08:05)
[2021-12-18 08:10] LABS: Add Manual Diff / Slide Review NO; Basophils Absolute Auto 100 /uL (0-100); Basophils Percent Auto 0.6 % (0-2); Eosinophils Absolute Auto 100 /uL (0-450); Hematocrit 37.8 % (36-46); Hemoglobin 12.8 g/dL (12.0-16.0); Lymphocytes Absolute Auto 1600 /uL (1100-4500); Lymphocytes Percent Auto 20.5 % (25-40); Mean Corpuscular HGB Conc 33.9 % (30-36); Mean Corpuscular Hemoglobin 32.2 PG (26-34); Mean Corpuscular Volume 94.7 fL (80-100); Monocytes Absolute Auto 800 /uL (0-900); Monocytes Percent Auto 9.5 % (3-14); Neutrophils Absolute Auto 5500 /uL (1500-7000); Neutrophils Percent Auto 68.4 % (50-75); Platelet Count 203 X10^3/uL (150-400); Red Blood Cell Count 3.99 X10^6/uL (4.0-5.2); Red Cell Distribution Width 15.5 % (11.6-14.8)
[2021-12-18 08:42] LABS: COVID19 -Nasal RAPID Negative (Negative)
--- NOTE | 2021-12-18 13:02 | PM.OBPNLAB ---
Date/Time Date Patient Seen: 12/18/21 Time Patient Seen: 13:02 Pain Control Pain control: tolerating well Pelvic Exam Dilation (cm): 3 Effacement (%): 80 station: -1 Amniotic membrane status: Ruptured (AROM for clear fluid) Contractions Monitor mode: External Pitocin rate (mU/min): 12 Contraction frequency (min): 2 Contraction pattern: Regular Status status: Category l Heart Rate Baseline: 130 Monitor Accelerations: Present Monitor Decelerations: Absent Monitor Variability: Moderate Assessment and Plan Assessment: induction ongoing Plan: continuous present management Comments: 26 year old at 40+6 here for postdates induction. AROM for clear fluid. Epidural upon request. Continue pitocin. Anticipate .
[2021-12-18] MEDS: FENT 2MCG/ML BUPIV 0.125% EPI 200 MCG/100 ML PLAST..BAG 12 MCG EPIDURAL (14:05)
--- NOTE | 2021-12-18 16:53 | PM.OBPNLAB ---
Date/Time Date Patient Seen: 12/18/21 Time Patient Seen: 16:53 Pain Control Pain control: tolerating well and epidural Pelvic Exam Dilation (cm): 4 Effacement (%): 80 station: -1 Amniotic membrane status: Ruptured (AROM for clear fluid) Contractions Monitor mode: External Pitocin rate (mU/min): 10 Contraction frequency (min): 2 Contraction pattern: Regular Status status: Category l Heart Rate Baseline: 125 Monitor Accelerations: Present Monitor Decelerations: Absent Monitor Variability: Moderate Assessment and Plan Assessment: induction ongoing Plan: continuous present management
--- NOTE | 2021-12-18 20:49 | PM.OBPRVD ---
Labor & Delivery Delivery date: 12/18/21 Induction method: per pitocin protocol Delivery augmentation: rupture of membranes Delivery monitor: external FHT Route of delivery: Anesthesia Type: Epidural Complications: hemorrhage secondary to right sulcus tear Narrative: Patient is a 26-year-old at 40 weeks and 6 days who gave on 12/18/21 at 7:34 PM. SRAVAN: 12/12/21 Hospital problems: 40 weeks of Spontaneous vaginal delivery hemorrhage secondary to right sulcus tear STAGE I: Labor Patient presented for post-dates induction and was started on Pitocin per protocol. Artificial rupture membranes at 12:49 p.m. with clear fluid. She went on to receive an epidural with excellent pain control. heart tones were category 1 throughout stage I. First stage of labor 10 hours 58 minutes. STAGE II: Delivery Patient was complete and pushed for 31 minutes. She delivered a vigorous male fat 7:34 p.m.. Infant was vertex and STEVE. was immediately placed on mother's abdomen. Cord was clamped and cut after 1 minute delay. No resuscitation of the required. Second stage of labor 31 minutes. STAGE III: Placenta/Cord Placenta delivered at 7:39 p.m. and appeared intact with a three-vessel cord. Pitocin bolus given in the IV after delivery of the placenta. Uterus was firm well below the umbilicus however she was actively bleeding from a right labial laceration. Dr. Arshad began repair of the right labial laceration with 3-O chromic however upon further inspection, the laceration extended deep into the right sulcus, also with active bleeding. Dr. Guzman was consulted at that and performed the right sulcus repair with 2-0 Vicryl with good hemostasis. Dr. Arshad then went on to repair a second-degree perineal laceration with 2 0 Vicryl and a left labial laceration with 3-0 Vicryl. Hemostasis assured. EBL: There was 500 ml in the QBL drape and an additional 559 ml from lap and 4x4 sponges for a total EBL of 1059 ml. Needle and sponge counts were correct. The vagina was inspected and no items were left in situ. Patient was doing well with Rafat, her , and mother at bedside. Will request nursing straight catheterize and keep patient in bed for the next several hours. Patient was counseled on blood loss and advised to notify nursing prior to getting out of bed. She will be monitored closely for lightheadedness/dizziness, hypotension or tachycardia. [place] Baby 1: gender: Male Presentation: vertex Position: Right Occiput Anterior Placenta delivery description: Spontaneous Cord Vessel Description: 3 Vessels score (1 min): 9 score (5 min): 9 Plan for aftercare: Routine care
[2021-12-18] MEDS: LIDOCAINE 1% 20 ML (20:54)
[2021-12-18 22:58] VITALS: TEMP 36.8
[2021-12-18] MEDS: DERMOPLAST SPRAY 20% 60 ML 1 SPRAY TOP (22:58)
[2021-12-18] MEDS: ACETAMINOPHEN 325 MG TABLET 650 MG PO (22:58)
[2021-12-18] MEDS: OXYCODONE IR 5 MG TABLET PO (22:59)
[2021-12-18] MEDS: LANOLIN OINT 7 GM 1 APPLIC TOP (23:00)
[2021-12-19] MEDS: IBUPROFEN 600 MG TABLET PO ×4 (01:27→19:44)
[2021-12-19] MEDS: OXYCODONE IR 5 MG TABLET PO ×2 (03:36→11:13)
[2021-12-19] MEDS: ACETAMINOPHEN 325 MG TABLET 650 MG PO ×3 (03:36→23:09)
[2021-12-19 06:39] LABS: Add Manual Diff / Slide Review NO; Basophils Absolute Auto 0 /uL (0-100); Basophils Percent Auto 0.3 % (0-2); Eosinophils Absolute Auto 0 /uL (0-450); Eosinophils Percent Auto 0.3 % (2-4); Hematocrit 26.5 % (36-46); Hemoglobin 9.1 g/dL (12.0-16.0); Lymphocytes Absolute Auto 1300 /uL (1100-4500); Lymphocytes Percent Auto 13.4 % (25-40); Mean Corpuscular HGB Conc 34.4 % (30-36); Mean Corpuscular Hemoglobin 32.6 PG (26-34); Mean Corpuscular Volume 94.5 fL (80-100); Monocytes Absolute Auto 800 /uL (0-900); Monocytes Percent Auto 8.3 % (3-14); Neutrophils Absolute Auto 7800 /uL (1500-7000); Neutrophils Percent Auto 77.7 % (50-75); Platelet Count 156 X10^3/uL (150-400); Red Blood Cell Count 2.81 X10^6/uL (4.0-5.2); Red Cell Distribution Width 15.2 % (11.6-14.8)
[2021-12-19] MEDS: DOCUSATE 100 MG CAPSULE PO ×2 (07:20→11:13)
--- NOTE | 2021-12-19 08:10 | PM.OBPN.1 ---
Subjective - OB Subjective Patient comments: no complaints, pain well controlled and tolerating diet baby status: doing well and nursing well feeding status: exclusively breast feeding Date Patient Seen: 12/19/21 Time Patient Seen: 07:45 Exam Vital Signs (past 8 hours): Temperature 98.3? blood pressure 121/72 heart rate 96 Narrative Exam Narrative: General: Awake and alert, no acute distress. HEENT: NCAT, EOMI, moist oral mucosa CV: Regular rate and rhythm, no murmurs, rubs or gallops Lungs: CTAB, no wheezes, rales, or rhonchi Abdomen: Soft, nontender; bowel tones active; uterus firm 2 cm below umbilicus : Moderate lochia on pad. Mild edema of labila, No hematoma. Extremities: Warm, no edema Objective Labs Result Diagrams: 12/19/21 06:23 Labs: Laboratory Results - last 24 hr 12/18/21 12/18/21 12/18/21 07:11 07:45 07:45 WBC 8.0 RBC 3.99 L Hgb 12.8 Hct 37.8 MCV 94.7 MCH 32.2 MCHC 33.9 RDW 15.5 H Plt Count 203 Neut % (Auto) 68.4 Lymph % (Auto) 20.5 L [place] % (Auto) 9.5 Eos % (Auto) 1.0 L Baso % (Auto) 0.6 Neut # (Auto) 5500 Lymph # (Auto) 1600 [place] # (Auto) 800 Eos # (Auto) 100 Baso # (Auto) 100 SARS-CoV-2 (PCR) Negative Blood Type A Positive Antibody Screen Negative 12/19/21 06:23 WBC 10.0 RBC 2.81 L Hgb 9.1 L Hct 26.5 L MCV 94.5 MCH 32.6 MCHC 34.4 RDW 15.2 H Plt Count 156 Neut % (Auto) 77.7 H Lymph % (Auto) 13.4 L [place] % (Auto) 8.3 Eos % (Auto) 0.3 L Baso % (Auto) 0.3 Neut # (Auto) 7800 H Lymph # (Auto) 1300 [place] # (Auto) 800 Eos # (Auto) 0 Baso # (Auto) 0 SARS-CoV-2 (PCR) Blood Type Antibody Screen Assessment & Plan Assessment and Plan (1) Spontaneous vaginal delivery: Problem details: 12/18/21, deep right sulcus tear with repair, subsequent hemorrhage secondary to laceration. Status: Acute (2) 40 weeks gestation of : Status: Acute (3) hemorrhage: Status: Acute Plan day: 1 plan OB: routine care Comments: 26-year-old status post spontaneous vaginal delivery complicated by hemorrhage secondary to deep right sulcus laceration. Dr. Guzman was consulted for repair. Catheter was replaced after delivery and patient remained in bed overnight due to blood loss and extensive repair. This morning she is feeling well without complaints. Pain well controlled. Vaginal bleeding as expected. Admission H&H was 12.8 and 37.8. H&H this morning was 9.7 and 26.5. Patient is without symptoms of anemia. Will continue to monitor closely as she gets up out of bed today and catheter is removed. Anticipate discharge home tomorrow. Time Spent With Patient Time: Total time spent is greater than 50% in coordination of care (as documented) at patient's floor/unit and/or counseling patient: Time with patient: less than 15 minutes
[2021-12-19] MEDS: OXYCODONE IR 10 MG TABLET PO ×2 (19:45→23:09)
[2021-12-19 23:00] VITALS: BP 116/73; PULSE 89; RESP 16; TEMP 36.1
[2021-12-20] MEDS: IBUPROFEN 600 MG TABLET PO ×2 (01:31→08:27)
[2021-12-20] MEDS: OXYCODONE IR 10 MG TABLET PO (03:39)
[2021-12-20] MEDS: ACETAMINOPHEN 325 MG TABLET 650 MG PO (05:15)
[2021-12-20] MEDS: FERROUS SULFATE 325 MG TABLET PO (08:26)
[2021-12-20] MEDS: DOCUSATE 100 MG CAPSULE PO (08:26)
[2021-12-20] MEDS: PRENATAL VIT,CALC/IRON/FOLIC 1 TABLET 1 TAB PO (08:26)
[2021-12-20] MEDS: OXYCODONE IR 5 MG TABLET PO (08:27)
--- NOTE | 2021-12-20 10:37 | PM.OBDS.1 ---
Discharge Providers Provider Date of admission: 12/18/21 07:03 Discharge Date: 12/20/21 Primary care physician: Mary Arshad DO Consults: 12/19/21 20:53 Consult to [employer]per Routine Comment: Discharge provider: Mary Arshad DO Summary Hospital Course Date Patient Seen: 12/20/21 Time Patient Seen: 09:45 Diagnoses: Spontaneous vaginal delivery 40 weeks of hemorrhage Acute blood loss anemia Hospital Course: 26-year-old after spontaneous vaginal delivery of a vigorous male infant complicated by hemorrhage secondary to deep right sulcus laceration.? Dr. Guzman performed the repair of the right sulcus laceration with good hemostasis. Bilateral labial lacerations and a second-degree perineal laceration were repaired by Dr. Arshad. EBL was 1059 mL. Catheter was replaced after delivery due to extensive repair and blood loss and removed on day 2. There was difficulty with pain control initially however pain ultimately well controlled with oxycodone 10 mg in addition to ibuprofen and Tylenol. Day of discharge she was progressing well. She was ambulating, voiding and passing flatus. Tolerating a diet. Vaginal bleeding was moderate. Pain reasonably well controlled with medications. Breast-feeding was going well without concerns in the . She was started on iron due to acute blood loss anemia secondary to hemorrhage from the sulcus tear. She was without symptoms of anemia. Advised patient to call for fevers, severe pain or bleeding through more than a pad an hour. Follow-up for visit in 1 month or sooner if needed. Peripartum Data Infant Delivery Method: Natural Vaginal Laceration Description: Perineal - 2nd Degree, Vaginal - 2nd Degree (Right sulcus laceration with repair by Dr. Guzman) and Labial (Bilateral) complications: none [place] 1: Gender: Male Disposition of : home Discharge Diagnosis (1) Spontaneous vaginal delivery: Status: Acute Problem Details: 12/18/21, deep right sulcus tear with repair, subsequent hemorrhage secondary to laceration. (2) 40 weeks gestation of : Status: Acute (3) hemorrhage: Status: Acute Status at Discharge Cognitive/behavioral status at discharge: at baseline, oriented Functional status at discharge: independent ambulation Overall status at discharge: patient is progressing back to baseline Time Spent with Patient Time attestation: Total time spent providing and/or coordinating discharge services: Time spent: Less than 30 minutes Objective Labs Result Diagrams: 12/19/21 06:23 Exam Vital Signs (past 8 hours): Temperature 97.8? blood pressure 115/65 heart rate 70 Narrative Exam Narrative: General: Awake and alert, comfortable sitting up in bed HEENT: NCAT, EOMI, moist oral mucosa CV: Regular rate and rhythm, no murmurs, rubs or gallops Lungs: CTAB, no wheezes, rales, or rhonchi Abdomen: Soft, nontender; bowel tones active; uterus firm 2 cm below umbilicus Extremities: Warm, no edema Discharge Plan Discharge Plan Patient Disposition: Home Discharge orders & Medications Prescriptions: New ferrous sulfate 325 mg (65 mg iron) Tablet 325 mg PO DAILY Qty: 30 0RF docusate sodium 100 mg Capsule 100 mg PO DAILY Qty: 30 0RF ibuprofen 600 mg Tablet 600 mg PO Q6HR PRN (Reason: Pain, Mild (1-3)) Qty: 30 0RF oxycodone 5 mg Tablet 5 mg PO Q4HR PRN (Reason: Pain, Moderate (4-6)) Qty: 30 0RF Continued escitalopram oxalate [Lexapro] 20 mg tablet 20 mg PO DAILY 0RF albuterol sulfate 90 mcg/actuation HFA aerosol inhaler 2 puff inhalation Q6H PRN (Reason: shortness of breath or wheezing) Qty: 8.5 2RF ondansetron 4 mg tablet,disintegrating 4 mg PO Q6H PRN (Reason: nausea and vomiting) Qty: 30 0RF Follow up/Referrals: Mary Arshad DO [Primary Care Provider] - 1 Month ( visit will be scheduled when you come in with your in 2 days) Diet/Activity/Treatments Diet: Low-protein/Renal Skin/Wound/Dressing Care Report to your healthcare provider any signs of infection, such as:: chills, fever, night sweats, increased pain, unusual drainage and unusual redness Visit Report/Discharge Packet Visit Report Forms: Patient Portal/API, Stroke Signs & Symptoms Discharge Data Primary Care Provider: Mary Arshad
--- NOTE | 2021-12-20 11:16 | PM.CN ---
History of Present Illness Consult details Date Patient Seen: 12/18/21 Time Patient Seen: 20:45 Chief complaint: L&D Reason for consult: Significant vaginal laceration after vaginal delivery Requesting provider: Mary Arshad Narrative: Patient is a 26-year-old 1 para 0 at 41 weeks gestation who underwent an induction of labor. She progressed to complete dilation and had a spontaneous vaginal delivery. Upon inspection there was a significant vaginal tear on the right hand side. Consult was obtained by Dr. Arshad. Meds Home Medications and Allergies Home Medications Medication Instructions Recorded Confirmed Type escitalopram oxalate 20 mg tablet 20 mg PO DAILY 05/29/19 12/18/21 History (Lexapro) ondansetron 4 mg disintegrating 4 mg PO Q6H PRN #30 tab 05/02/21 12/18/21 Rx tablet albuterol sulfate 90 mcg/actuation 2 puff INHALATION Q6H PRN #8.5 g 09/22/21 12/18/21 Rx aerosol inhaler docusate sodium 100 mg capsule 100 mg PO DAILY #30 cap 12/20/21 Rx ferrous sulfate 325 mg (65 mg 325 mg PO DAILY #30 tab 12/20/21 Rx iron) tablet ibuprofen 600 mg tablet 600 mg PO Q6HR PRN #30 tab 12/20/21 Rx oxycodone 5 mg tablet 5 mg PO Q4HR PRN #30 tab 12/20/21 Rx Allergies Allergy/AdvReac Type Severity Reaction Status Date / Time amoxicillin AdvReac Intermediate hives Verified 09/16/21 15:37 Exam Narrative Exam Narrative: Generally: Patient comfortable with epidural External genitalia: Laceration of the right labia minora Vagina: Significant tear of the right vaginal sidewall the went back proximally 12 cm and extended down to the pelvic bone. Procedure: An Allis clamp was placed on the apex of the laceration. Using 2 0 Vicryl with running interlocking sutures the vaginal laceration was repaired all the way to the introitus. An RN and Dr. Arshad were used for retraction for visualization. Hemostasis was achieved. The remainder of the repair was closed by Dr. Arshad. Objective Labs Result Diagrams: 12/19/21 06:23 [facility] Medical History (Updated 12/19/21 @ 08:13 by Mary Arshad, DO) Anxiety Asthma Chronic upset stomach Eczema Migraine MRSA (methicillin resistant staph aureus) culture positive (~2006) Spontaneous vaginal delivery Surgical History History of esophagogastroduodenoscopy (EGD) (~2016) [place] teeth extracted (~2015) Family History Father Diabetes mellitus Mother Tumor cells, benign History of partial thyroidectomy Grandfather Myocardial infarction Grandmother Cancer Cancer of kidney Metastatic cancer Metastatic bone cancer Grandfather History of ETOH abuse Diabetes mellitus Leukemia Grandmother Depression Diabetes mellitus Alzheimer's dementia Brother Asthma Family/Other No problems noted. 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.) current occupational exposures/hazards: Yes special lorena needs: No Tobacco & Substance Use Smoking Status: Never smoker second hand exposure: No alcohol intake: former (pre- : on a rare occasion) substance use type: does not use Assessment & Plan Assessment & Plan narrative: Assessment: 26-year-old 1 para 1 with significant right vaginal lateral sidewall laceration Plan: Repair as above Time Spent With Patient Time with patient: 30 to 49 minutes with 50% spent counseling/coordinating care Critical Care time: I spent a total of [] minutes of critical care time on this patient's care today; this time is exclusive of procedural time.
== END 2021-12-20 12:00 | disposition home or self-care (01) | DRG 806 ==
PROVIDERS: Admitting Provider Family Medicine; PCP Family Medicine; Referring Provider Family Medicine; Visit Provider Family Medicine
DX: O48.0 Post-term pregnancy (principal); O72.0 Third-stage hemorrhage; Z37.0 Single live birth; D62 Acute posthemorrhagic anemia; Z86.16 Personal history of COVID-19; O90.81 Anemia of the puerperium; Z3A.40 40 weeks gestation of pregnancy; O70.1 Second degree perineal laceration during delivery; Z20.822 Contact with and (suspected) exposure to COVID-19
CPT/HCPCS: 01967; 36415; 59050; 59400; 85025; 86850; 86900; 86901; 87635; C9803; G0379; J2590

== ENCOUNTER → 2022-03-02 09:46 | Outpatient (CLI) | payer OTHER, SELFPAY | PROVIDERS: PCP Family Medicine; Visit Provider Family Medicine | DX: N89.8 Other specified noninflammatory disorders of vagina (principal) | CPT/HCPCS: 87210 ==